=== PATIENT | female | born 2000 | race Two or more races ===

== ENCOUNTER 2022-09-16 15:29 | Emergency (ER) | payer SELFPAY ==
[~2022-09-16] VITALS: Ht 167.6 cm; Wt 58.3 kg
[2022-09-16] MEDS ORDERED: IBUP1TAB4 PO (19:31)
[2022-09-16] MEDS ORDERED: BACL10TA PO (19:31)
[2022-09-16 19:34] VITALS: BP 122/72
== END 2022-09-16 19:45 | disposition home or self-care (01) ==
LOC: ER 15:29
DX: S13.4XXA Sprain of ligaments of cervical spine, initial encounter (principal); S00.03XA Contusion of scalp, initial encounter; S20.219A Contusion of unspecified front wall of thorax, initial encounter; X58.XXXA Exposure to other specified factors, initial encounter; Y93.I9 Activity, other involving external motion; Y92.89 Other specified places as the place of occurrence of the external cause; Y99.8 Other external cause status
CPT/HCPCS: 70450; 71111; 72125; 81025